=== PATIENT | female | born 1970 | race Caucasian/White ===

== ENCOUNTER 2023-10-12 00:33 | Inpatient (IN) | payer MEDICAID, OTHER ==
[~2023-10-12] VITALS: Ht 160 cm; Wt 81.6 kg
[2023-10-12 02:06] LABS: BASOPHILS % (AUTO) 0.2 % (0.0-2.0); EOSINOPHILS % (AUTO) 0.2 % (0.0-6.0); HEMATOCRIT 36 % (33-45); HEMOGLOBIN 11.9 g/dL (11.5-14.8); LYMPHOCYTES # (AUTO) 1.3 K/uL (0.8-4.8); LYMPHOCYTES % (AUTO) 14.2 % (20.0-44.0); MEAN CORPUSCULAR HEMOGLOBIN 34 PG (26.0-33.0); MEAN CORPUSCULAR HGB CONC 33 g/dl (31.0-36.0); MEAN CORPUSCULAR VOLUME 103 fL (82-100); MONOCYTES # (AUTO) 0.6 K/uL (0.1-1.30); MONOCYTES % (AUTO) 5.9 % (2.0-12.0); NEUTROPHILS # (AUTO) 7.5 K/uL (1.8-8.9); NEUTROPHILS % (AUTO) 79.5 % (43.0-81.0); PLATELET COUNT (AUTO) 210 K/uL (150-450); RED BLOOD CELL COUNT(AUTO) 3.51 MIL/uL (4.0-5.2); RED CELL DISTRIBUTION WIDTH 16.4 % (11.5-15.0); WHITE BLOOD COUNT (AUTO) 9.5 K/uL (4.3-11.0)
[2023-10-12] MEDS ORDERED: HYDROCODONE/APAP 5/325MG TABLET ONE (02:49)
[2023-10-12] MEDS: HYDROCODONE/APAP 5/325MG TABLET PO ONE (02:50)
[2023-10-12 03:17] LABS: APPEARANCE,URINE SLIGHTLY CLOUDY (CLEAR); BILIRUBIN,URINE NEGATIVE (NEGATIVE); BLOOD, URINE TRACE-INTA Ery/uL (NEGATIVE); COLOR,URINE YELLOW (YELLOW); KETONES,URINE NEGATIVE (NEGATIVE); LEUKOCYTE ESTERASE ,URINE 2+ (NEGATIVE); NITRITE, URINE NEGATIVE (NEGATIVE); PH,URINE 8.5 (5.0-8.0); PROTEIN,URINE 2+ mg/dl (NEGATIVE); UGLUCOSE NEGATIVE (NEGATIVE); UROBILINOGEN,URINE 0.2 EU/dL (0.2)
[2023-10-12 03:19] LABS: ADD URINE CULTURE YES; BACTERIA,URINE Few /HPF (None Seen); RBC,URINE 0-2 /HPF (0-2); SQUAMOUS EPITHELIAL CELL,UR Rare /HPF (None Seen)
[2023-10-12 03:35] LABS: AMPHETAMINE, URINE NEGATIVE (NEGATIVE); BARBITURATE, URINE NEGATIVE (NEGATIVE); BENZODIAZEPINE, URINE NEGATIVE (NEGATIVE); CANNABINOID, URINE NEGATIVE (NEGATIVE); COCCAINE, URINE NEGATIVE (NEGATIVE); OPIATE, URINE NEGATIVE (NEGATIVE); PHENCYCLIDINE SCREEN,URINE NEGATIVE (NEGATIVE)
[2023-10-12 05:31] LABS: ALBUMIN 2.5 g/dL (3.4-5.0); BILIRUBIN,TOTAL 0.5 mg/dL (0.2-1.0); CALCIUM, SERUM 8.3 mg/dL (8.5-10.1); CREATININE 6.5 mg/dL (0.6-1.3); TOTAL PROTEIN, SERUM 9.2 g/dL (6.4-8.2)
[2023-10-12 05:34] LABS: POTASSIUM 6.4 mmol/L (3.5-5.1)
[2023-10-12] MEDS ORDERED: CT SWABBABLE VALVE TRANS SET 1 EA INFUS.SET MC ONE (05:38)
[2023-10-12] MEDS ORDERED: IOHEXOL-350 100 ML VIAL IV ONE (05:38)
[2023-10-12] MEDS ORDERED: IV NS 0.9% 0 ML IV ONE (05:38)
[2023-10-12] MEDS ORDERED: SODIUM POLYSTYRENE SULFONATE 15 G/60 ML BOTTLE ONE (06:18)
[2023-10-12] MEDS ORDERED: SODIUM BICARBONATE SYR 50 MEQ/50 ML DISP.SYRIN ONE (06:19)
[2023-10-12] MEDS ORDERED: DEXTROSE 50%-WATER 50 ML DISP.SYRIN ONE (06:19)
[2023-10-12] MEDS ORDERED: INSULIN REGULAR, HUMAN 100 UNIT/ML 10 ML VIAL ONE (06:24)
[2023-10-12] MEDS: SODIUM BICARBONATE SYR 50 MEQ/50 ML DISP.SYRIN IV ONE (06:26)
[2023-10-12] MEDS: SODIUM POLYSTYRENE SULFONATE 15 G/60 ML BOTTLE PO ONE (06:27)
[2023-10-12] MEDS: DEXTROSE 50%-WATER 50 ML DISP.SYRIN IVP ONE (06:27)
[2023-10-12] MEDS: INSULIN REGULAR, HUMAN 100 UNIT/ML 10 ML VIAL IV ONE (06:38)
[2023-10-12] MEDS ORDERED: ONDANSETRON HCL/PF 4 MG/2 ML VIAL IVP PRN (07:00)
[2023-10-12] MEDS ORDERED: MORPHINE SULFATE INJ 2 MG/ML DISP.SYRIN IV PRN (07:00)
[2023-10-12] MEDS ORDERED: MAG HYDROX/AL HYDROX/SIMETH 30 ML UDC PO PRN (07:00)
[2023-10-12] MEDS ORDERED: Z GUARD REMEDY 4 OZ OINT TP PRN (07:00)
[2023-10-12] MEDS ORDERED: ZOLPIDEM TARTRATE 5 MG TABLET PO PRN (07:00)
[2023-10-12] MEDS ORDERED: MAGNESIUM HYDROXIDE 30 ML UDC PO PRN (07:00)
[2023-10-12] MEDS ORDERED: DEXTROSE 50%-WATER 50 ML DISP.SYRIN IV PRN (07:00)
[2023-10-12] MEDS ORDERED: NITROGLYCERIN 0.4 MG/TAB BOTTLE SL PRN (07:00)
[2023-10-12 07:01] VITALS: O2SAT 98
[2023-10-12 07:30] VITALS: BP 124/61; TEMP 97.7; O2SAT 100
[2023-10-12] MEDS ORDERED: ESOM40CA52 PO (08:03)
[2023-10-12] MEDS ORDERED: ERGO500093 PO (08:03)
[2023-10-12] MEDS ORDERED: DOCU100T9 PO (08:03)
[2023-10-12] MEDS ORDERED: NIFE-34 PO (08:03)
[2023-10-12] MEDS ORDERED: INSU100V7 SQ (08:03)
[2023-10-12] MEDS ORDERED: ASPI-1169 PO (08:03)
[2023-10-12] MEDS ORDERED: SEVE800T8 PO (08:03)
[2023-10-12] MEDS ORDERED: INSU100V27 SQ (08:03)
[2023-10-12] MEDS ORDERED: ESCI5TAB PO (08:03)
[2023-10-12] MEDS: BLOOD SUGAR DIAGNOSTIC 1 EACH STRIP IN SCH (08:39)
[2023-10-12] MEDS: INSULIN REGULAR, HUMAN 100 UNIT/ML 3 ML VIAL SQ PRN (08:40)
[2023-10-12] MEDS: ASPIRIN 81 MG TAB.CHEW PO SCH (09:32)
[2023-10-12] MEDS: HEPARIN SODIUM, PORCINE 5000 UNITS/1 ML VIAL SQ SCH (09:36)
[2023-10-12] MEDS: PANTOPRAZOLE 40 MG VIAL IV SCH (09:37)
[2023-10-12 12:00] VITALS: BP 140/64; TEMP 98.6; O2SAT 99
[2023-10-12] MEDS: SEVELAMER CARBONATE 800 MG TABLET PO SCH (12:50)
[2023-10-12 16:27] VITALS: BP 132/59; TEMP 98.1; O2SAT 96
[2023-10-12 17:50] LABS: MAGNESIUM 2.4 mg/dL (1.8-2.4)
[2023-10-12 18:24] LABS: THYROID STIMULATING HORMONE 0.771 uIU/mL (0.358-3.74)
[2023-10-12 20:00] VITALS: BP 152/95; TEMP 98.4; O2SAT 98
[2023-10-12] MEDS: INSULIN GLARGINE, 100 UNIT/ML CARTRIDGE SQ SCH (22:30)
[2023-10-13] VITALS: BP 121/57; TEMP 98.4; O2SAT 96
[2023-10-13 04:00] VITALS: BP 133/62; TEMP 99; O2SAT 98
[2023-10-13 06:50] LABS: BASOPHILS % (AUTO) 0.5 % (0.0-2.0); EOSINOPHILS # (AUTO) 0.2 K/uL (0.0-0.7); HEMATOCRIT 35 % (33-45); HEMOGLOBIN 11.6 g/dL (11.5-14.8); LYMPHOCYTES # (AUTO) 2.6 K/uL (0.8-4.8); LYMPHOCYTES % (AUTO) 33.5 % (20.0-44.0); MEAN CORPUSCULAR HEMOGLOBIN 34 PG (26.0-33.0); MEAN CORPUSCULAR HGB CONC 34 g/dl (31.0-36.0); MEAN CORPUSCULAR VOLUME 102 fL (82-100); MONOCYTES # (AUTO) 0.5 K/uL (0.1-1.30); MONOCYTES % (AUTO) 6.7 % (2.0-12.0); NEUTROPHILS # (AUTO) 4.4 K/uL (1.8-8.9); NEUTROPHILS % (AUTO) 57.3 % (43.0-81.0); PLATELET COUNT (AUTO) 193 K/uL (150-450); RED BLOOD CELL COUNT(AUTO) 3.39 MIL/uL (4.0-5.2); WHITE BLOOD COUNT (AUTO) 7.7 K/uL (4.3-11.0)
[2023-10-13 07:08] LABS: CALCIUM, SERUM 8.2 mg/dL (8.5-10.1); CREATININE 5.1 mg/dL (0.6-1.3); MAGNESIUM 2.2 mg/dL (1.8-2.4); PHOSPHORUS 4.1 mg/dL (2.5-4.9); POTASSIUM 4.2 mmol/L (3.5-5.1)
[2023-10-13 07:15] LABS: THYROID STIMULATING HORMONE 1.617 uIU/mL (0.358-3.74)
[2023-10-13 07:30] VITALS: BP 145/62; TEMP 99.3; O2SAT 97
[2023-10-13] MEDS: ESCITALOPRAM OXALATE (10 MG) 10 MG TABLET PO SCH (08:39)
[2023-10-13] MEDS: ASPIRIN 81 MG TAB.CHEW PO SCH (08:43)
[2023-10-13] MEDS: NIFEDIPINE XL 60 MG TAB.ER.24 PO SCH (08:43)
[2023-10-13] MEDS: METOPROLOL TARTRATE 50 MG TABLET PO SCH (08:48)
[2023-10-13] MEDS: PANTOPRAZOLE 40 MG TABLET.DR PO SCH (08:48)
[2023-10-13] MEDS ORDERED: Medication Not On Formulary EA (Esomeprazole Magnesium 40 MG) PO SCH (09:00)
[2023-10-13] MEDS: ACETAMINOPHEN 325 MG TABLET PO PRN (13:46)
[2023-10-13] MEDS ORDERED: IOHEXOL-350 100 ML VIAL IV ONE (15:48)
[2023-10-13] MEDS ORDERED: IV NS 0.9% 250 ML IV ONE (15:49)
[2023-10-13] MEDS ORDERED: METOPROLOL TARTRATE INJ 5 MG/5 ML AMPUL ONE (15:49)
[2023-10-13] MEDS ORDERED: CT SWABBABLE VALVE TRANS SET 1 EA INFUS.SET MC ONE (15:49)
[2023-10-13] MEDS: METOPROLOL TARTRATE INJ 5 MG/5 ML AMPUL IVP PRN (15:50)
[2023-10-13] MEDS: NITROGLYCERIN 0.4 MG/TAB BOTTLE SL ONE (15:58)
[2023-10-13 16:02] VITALS: BP 151/60; TEMP 99.1; O2SAT 97
[2023-10-14] VITALS: BP 128/43; TEMP 98.4; O2SAT 98
[2023-10-14 03:11] LABS: HEPATITIS B SURFACE AB Reactive (.)
[2023-10-14 07:20] LABS: BASOPHILS % (AUTO) 0.6 % (0.0-2.0); EOSINOPHILS # (AUTO) 0.1 K/uL (0.0-0.7); EOSINOPHILS % (AUTO) 1.2 % (0.0-6.0); HEMATOCRIT 34 % (33-45); HEMOGLOBIN 11.4 g/dL (11.5-14.8); LYMPHOCYTES # (AUTO) 2.8 K/uL (0.8-4.8); MEAN CORPUSCULAR HEMOGLOBIN 34 PG (26.0-33.0); MEAN CORPUSCULAR HGB CONC 34 g/dl (31.0-36.0); MEAN CORPUSCULAR VOLUME 101 fL (82-100); MONOCYTES # (AUTO) 0.7 K/uL (0.1-1.30); MONOCYTES % (AUTO) 9.3 % (2.0-12.0); NEUTROPHILS # (AUTO) 3.9 K/uL (1.8-8.9); NEUTROPHILS % (AUTO) 51.9 % (43.0-81.0); PLATELET COUNT (AUTO) 185 K/uL (150-450); RED BLOOD CELL COUNT(AUTO) 3.35 MIL/uL (4.0-5.2); RED CELL DISTRIBUTION WIDTH 16.1 % (11.5-15.0); WHITE BLOOD COUNT (AUTO) 7.5 K/uL (4.3-11.0)
[2023-10-14 07:49] LABS: CALCIUM, SERUM 6.9 mg/dL (8.5-10.1); CREATININE 4.9 mg/dL (0.6-1.3); POTASSIUM 3.9 mmol/L (3.5-5.1)
[2023-10-14 08:20] VITALS: BP 139/63; TEMP 99.2; O2SAT 99
[2023-10-14 15:52] VITALS: BP 93/54; TEMP 98.1; O2SAT 97
[2023-10-14 20:00] VITALS: BP 122/54; TEMP 98.4; O2SAT 97
[2023-10-15 08:00] VITALS: BP 138/66; TEMP 98.8; O2SAT 96
[2023-10-15 09:10] VITALS: BP 138/66
[2023-10-15] MEDS ORDERED: METO50TA16 PO (09:50)
== END 2023-10-15 13:00 | disposition home or self-care (01) | DRG 198 ==
LOC: EDBD 00:35 → ER 00:35 → TELE 06:18 → MED 10-13 10:18
PROVIDERS: ADMIT Internal Medicine; ATTEND Internal Medicine
PROC: 5A1D70Z Performance of Urinary Filtration, Intermittent, Less than 6 Hours Per Day (ICD-10-PCS; principal; 2023-10-12)
DX: I25.119 Atherosclerotic heart disease of native coronary artery with unspecified angina pectoris (principal); I12.0 Hypertensive chronic kidney disease with stage 5 chronic kidney disease or end stage renal disease; E11.22 Type 2 diabetes mellitus with diabetic chronic kidney disease; D63.1 Anemia in chronic kidney disease; N18.6 End stage renal disease; E87.1 Hypo-osmolality and hyponatremia; E87.5 Hyperkalemia; Z90.49 Acquired absence of other specified parts of digestive tract; Z99.2 Dependence on renal dialysis; N25.0 Renal osteodystrophy
CPT/HCPCS: 36415; 71045-TC; 75574; 76700-TC; 80048-TC; 80053-TC; 80061-TC; 81001; 82728-TC; 82962-TC; 83540-TC; 83735-TC; 83880; 84100-TC; 84132-TC; 84439-TC; 84443-TC; 84484-TC; 85025-TC; 85378-TC; 86706; 87086-TC; 87340; 90935-TC; 93307-TC; C9113; G0378; J1644; J1815; J3490; J7030; J7050; Q9967